=== PATIENT | female | born 1950 | race African-American/Black ===

== ENCOUNTER 2017-04-04 20:09 | Observation (INO) | payer OTHER ==
[~2017-04-04] VITALS: Ht 165.1 cm; Wt 63.5 kg
[~2017-04-04 20:09] MED LIST: GABA100C; INSLANTI; METO25TA3; NOVALOG
[2017-04-04] MEDS ORDERED: SODIUM CHLORIDE 0.9% 1,000 ML IVB ONE (20:29)
[2017-04-04 20:48] LABS: Urine Bacteria MOD /hpf (None Seen); Urine Blood 2+ /uL (Negative); Urine Mucus FEW (None Seen); Urine Specific Gravity 1.012 (1.001-1.035); Urine WBC 550 /hpf (0 - 5); Urine WBC Clumps PRESENT /hpf (None Seen)
[2017-04-04 20:59] LABS: Basophils # (auto) 0.1 uL; Basophils % (auto) 0.3 % (0.0-2.0); Eosinophils # (auto) 0 uL; Hematocrit 34.2 % (36.0-46.0); Hemoglobin 11.4 g/dL (12.2-16.2); Lymphocytes # (auto) 1.3 uL; Lymphocytes % (auto) 6.2 % (10.0-50.0); Mean Corpuscular Hemoglobin 27.5 pg (28.0-32.0); Mean Corpuscular Hgb Conc. 33.4 g/dL (32.0-36.0); Mean Corpuscular Volume 82.4 fL (80.0-100.0); Monocytes # (auto) 1.5 uL; Monocytes % (auto) 7.3 % (0.0-12.0); Neutrophils # (auto) 17.9 uL; Neutrophils % (auto) 86.2 % (37.0-80.0); Platelet Count (auto) 342 10^3/uL (140-450); Red Blood Cells 4.15 10^6/uL (4.0-5.20); Red Cell Distribution Width 15.1 % (11.8-14.3); White Blood Cell 20.7 10^3/uL (4.4-10.8)
[2017-04-04 21:09] LABS: INR 1.21 (0.9-1.15); Partial Thromboplastin Time 33.1 sec (22.64-33.71); Prothrombin Time 13.2 sec (9.37-12.3)
[2017-04-04] MEDS ORDERED: ACETAMINOPHEN 500 MG TAB PO ONE ×2 (21:09→21:15)
[2017-04-04] MEDS ORDERED: IBUPROFEN 600 MG TAB PO ONE (21:15)
[2017-04-04 21:20] LABS: Alanine Aminotransferase 11 U/L (13-56); Albumin 2.2 g/dL (3.4-5.0); Alkaline Phosphatase 78 U/L (45-117); Amylase 134 U/L (25-115); Anion Gap 12 (5-15); Aspartate Aminotransferase 20 U/L (15-37); BUN/Creatinine Ratio 10.2; Bilirubin, Total 1.1 mg/dL (0.2-1.0); Blood Urea Nitrogen 11 mg/dL (7-18); Calcium 8.1 mg/dL (8.5-10.1); Carbon Dioxide 24 mmol/L (21-32); Chloride 105 mmol/L (98-107); GFR African American 65 mL/min; GFR Non-African American 54 mL/min; Glucose 199 mg/dL (74-106); Lipase 76 U/L (73-393); Magnesium 2.1 mg/dL (1.6-2.6); Potassium 3.5 mmol/L (3.5-5.1); Sodium 141 mmol/L (136-145); Total Protein 7.3 g/dL (6.4-8.2)
[2017-04-04] MEDS ORDERED: cefTRIAXone 1GM/10ml IVPUSH 10 ML IV ONE (21:30)
[2017-04-04] MEDS ORDERED: SODIUM CHLORIDE 0.9% 2,000 ML IV ONE (21:30)
[2017-04-05] MEDS ORDERED: IOHEXOL 350 MG/ML 100ML IJ ONE (01:28)
[2017-04-05] MEDS ORDERED: ACETAMINOPHEN 325 MG TAB PO ONE ×2 (06:30)
[2017-04-05 10:39] VITALS: BP 114/74
== END 2017-04-05 11:22 | disposition short-term general hospital (02) | DRG 299 ==
LOC: EDBD 20:09 → ER 20:09 → OVERFLOW 20:30 → ER 04-05 11:22
PROVIDERS: ADMIT Family Medicine; ATTEND Family Medicine
DX: I71.4 Abdominal aortic aneurysm, without rupture (principal); A41.9 Sepsis, unspecified organism; I74.5 Embolism and thrombosis of iliac artery; J18.1 Lobar pneumonia, unspecified organism; N13.30 Unspecified hydronephrosis; N30.00 Acute cystitis without hematuria; I10 Essential (primary) hypertension; E11.9 Type 2 diabetes mellitus without complications; E78.5 Hyperlipidemia, unspecified; F17.210 Nicotine dependence, cigarettes, uncomplicated; Z82.49 Family history of ischemic heart disease and other diseases of the circulatory system; Z88.5 Allergy status to narcotic agent; Z89.612 Acquired absence of left leg above knee; Z79.899 Other long term (current) drug therapy
CPT/HCPCS: 36415; 71045; 74176; 74177; 80053; 81001; 82150; 83605; 83690; 83735; 84484; 85025; 85610; 85730; 87040; 93005; 96361; 96374; 99285; G0378; J7030; Q9967

== ENCOUNTER 2019-07-29 10:33 | Emergency (ER) | payer OTHER ==
[~2019-07-29] VITALS: Ht 172.7 cm; Wt 72.6 kg
[~2019-07-29 10:33] MED LIST changes: -METO25TA3; +METO25TA36
[2019-07-29 11:01] VITALS: BP 118/69
[2019-07-29] MEDS ORDERED: HYDROcodone-ACET 5/325MG TAB PO ONE (12:15)
== END 2019-07-29 12:27 | disposition home or self-care (01) ==
LOC: ER 10:33
DX: S86.911A Strain of unspecified muscle(s) and tendon(s) at lower leg level, right leg, initial encounter (principal); M54.16 Radiculopathy, lumbar region; E11.9 Type 2 diabetes mellitus without complications; E78.5 Hyperlipidemia, unspecified; I10 Essential (primary) hypertension; F17.210 Nicotine dependence, cigarettes, uncomplicated; X58.XXXA Exposure to other specified factors, initial encounter; Y93.89 Activity, other specified; Y92.89 Other specified places as the place of occurrence of the external cause; Y99.8 Other external cause status
CPT/HCPCS: 93971

== ENCOUNTER → 2019-08-07 | Emergency (ER) | payer OTHER ==
[~2019-08-07] VITALS: Ht 172.7 cm; Wt 72.6 kg
[~2019-08-07] MED LIST changes: +KETOROLAC TROMETH 60MG/2ML VIAL IM ONE
[2019-08-07 04:21] VITALS: BP 132/84
== END | disposition home or self-care (01) ==
LOC: EDUNIT# 01:21 → EDBD 01:29 → ER 01:32
DX: M54.16 Radiculopathy, lumbar region (principal); M54.41 Lumbago with sciatica, right side; E11.9 Type 2 diabetes mellitus without complications; E78.5 Hyperlipidemia, unspecified; I10 Essential (primary) hypertension; F17.210 Nicotine dependence, cigarettes, uncomplicated
CPT/HCPCS: 96372; 99283; J1885

== ENCOUNTER 2019-08-12 11:57 | Emergency (ER) | payer OTHER ==
[~2019-08-12] VITALS: Ht 167.6 cm; Wt 72.6 kg
[~2019-08-12 11:57] MED LIST changes: -KETOROLAC TROMETH 60MG/2ML VIAL IM ONE
[2019-08-12] MEDS ORDERED: SODIUM CHLORIDE 0.9% 1,000 ML IVB ONE (12:26)
[2019-08-12 13:00] LABS: Basophils # (auto) 0.1 10 ^3/uL (0-0.2); Eosinophils # (auto) 0.1 10 ^3/uL (0-0.8); Eosinophils % (auto) 0.2 % (0.0-7.0); Hemoglobin 9.9 g/dL (12.2-16.2); Monocytes # (auto) 1.7 10 ^3/uL (0-1.3)
[2019-08-12 13:01] LABS: Basophils % (auto) 0.2 % (0.0-2.0); Lymphocytes # (auto) 1.9 10 ^3/uL (0.4-5.4); Lymphocytes % (auto) 8.7 % (10.0-50.0); Mean Corpuscular Hemoglobin 24.8 pg (28.0-32.0); Mean Corpuscular Hgb Conc. 32.1 g/dL (32.0-36.0); Mean Corpuscular Volume 77.2 fL (80.0-100.0); Monocytes % (auto) 7.7 % (0.0-12.0); Neutrophils # (auto) 18.1 10 ^3/uL (1.6-8.6); Neutrophils % (auto) 83.2 % (37.0-80.0); Platelet Count (auto) 477 10^3/uL (140-450); Red Blood Cells 4.01 10^6/uL (4.0-5.20); Red Cell Distribution Width 15.7 % (11.8-14.3); White Blood Cell 21.8 10^3/uL (4.4-10.8)
[2019-08-12 13:07] LABS: INR 0.98 (0.9-1.15); Partial Thromboplastin Time 28.6 sec (23.64-32.05)
[2019-08-12 13:11] LABS: Albumin 1.9 g/dL (3.4-5.0); BUN/Creatinine Ratio 22.3; Calcium 9.1 mg/dL (8.5-10.1)
[2019-08-12 13:14] LABS: Bilirubin, Total 0.5 mg/dL (0.2-1.0)
[2019-08-12 13:22] LABS: Potassium 6.3 mmol/L (3.5-5.1)
[2019-08-12] MEDS ORDERED: SODIUM CHLORIDE 0.9% 1,000 ML IV ONE ×2 (14:30)
[2019-08-12] MEDS ORDERED: CLINDAMYCIN 600MG IV 50 ML IV ONE (14:30)
[2019-08-12] MEDS ORDERED: InsuLIN REG 1unit/0.01ml Soln (100units/ml) IV ONE (14:30)
[2019-08-12] MEDS ORDERED: SODIUM BICARBONATE 8.4 % INJ 50ML VIAL IV ONE (14:30)
[2019-08-12] MEDS ORDERED: SODIUM BICARBONATE 8.4% INJ 50ML SYRINGE IV ONE (14:30)
[2019-08-12] MEDS ORDERED: NOREPINEPHRINE 8 MG/250ML KIT 250 ML IV ONE (14:52)
[2019-08-12] MEDS ORDERED: NOREPINEPHRINE 8 MG/250ML KIT 250 ML IV SCH (15:00)
[2019-08-12] MEDS ORDERED: HEPARIN SODIUM (PORCINE) 5000 UNITS/ML 1ML VIAL IV ONE ×2 (15:30)
[2019-08-12] MEDS ORDERED: HEPARIN DRIP/D5W 100UNITS/ML 250 ML IV SCH ×2 (16:00)
[2019-08-12 17:37] VITALS: BP 100/48
== END 2019-08-12 17:14 | disposition short-term general hospital (02) ==
LOC: ER 11:57 → EDBD 11:57 → ER 17:14
DX: A41.9 Sepsis, unspecified organism (principal); S91.104A Unspecified open wound of right lesser toe(s) without damage to nail, initial encounter; I70.90 Unspecified atherosclerosis; N17.9 Acute kidney failure, unspecified; D63.8 Anemia in other chronic diseases classified elsewhere; E87.5 Hyperkalemia; I95.9 Hypotension, unspecified; I82.401 Acute embolism and thrombosis of unspecified deep veins of right lower extremity; X58.XXXA Exposure to other specified factors, initial encounter; Y93.89 Activity, other specified; Y92.89 Other specified places as the place of occurrence of the external cause; Y99.8 Other external cause status
CPT/HCPCS: 36415; 71045; 73700; 80053; 82962; 83605; 83735; 85025; 85610; 85730; 87040; 93005; 93926; 93971; 96365; 96366; 96367; 96368; 96375; 99291; J1644; J1815; J3490; J7030